=== PATIENT | male | born 1995 | race African-American/Black ===

== ENCOUNTER 2024-04-21 00:15 | Emergency (ER) | payer OTHER ==
[~2024-04-21] VITALS: Ht 177.8 cm; Wt 98.0 kg
[2024-04-21] MEDS ORDERED: LIDOCAINE HCL 1% 20 ML VIAL ONE (00:37)
[2024-04-21] MEDS ORDERED: CEFTRIAXONE 500 MG VIAL ONE (00:37)
[2024-04-21] MEDS ORDERED: CYCL5TAB PO (00:38)
[2024-04-21] MEDS ORDERED: DOXY-326 PO (00:38)
[2024-04-21] MEDS ORDERED: NAPR-1009 PO (00:38)
[2024-04-21] MEDS ORDERED: IBUPROFEN 800 MG TABLET ONE (00:38)
[2024-04-21] MEDS: CEFTRIAXONE 500 MG VIAL IM ONE (00:39)
[2024-04-21] MEDS: IBUPROFEN 800 MG TABLET PO ONE (00:39)
[2024-04-21 01:14] VITALS: BP 152/88; TEMP 97.9; O2SAT 98
[2024-04-24 03:06] LABS: *TRIC.VAG. NAA Negative (Negative)
[2024-04-24 15:11] LABS: *CHLAMYDIA NAA Negative (Negative); *GC NAA Negative (Negative)
== END 2024-04-21 01:18 | disposition home or self-care (01) ==
LOC: ER 00:23
DX: S29.012A Strain of muscle and tendon of back wall of thorax, initial encounter (principal); Z20.2 Contact with and (suspected) exposure to infections with a predominantly sexual mode of transmission; M54.9 Dorsalgia, unspecified; R03.0 Elevated blood-pressure reading, without diagnosis of hypertension; K13.79 Other lesions of oral mucosa; F31.9 Bipolar disorder, unspecified; F20.9 Schizophrenia, unspecified; F17.200 Nicotine dependence, unspecified, uncomplicated; Z79.899 Other long term (current) drug therapy; X58.XXXA Exposure to other specified factors, initial encounter; Y93.89 Activity, other specified; Y92.89 Other specified places as the place of occurrence of the external cause; Y99.8 Other external cause status
CPT/HCPCS: 99283; 96372; 87491; J0696; J3490; A4606; A4663